=== PATIENT | female | born 1965 | race African-American/Black ===

== ENCOUNTER 2018-07-19 13:07 | Emergency (ER) | payer SELFPAY ==
[~2018-07-19] VITALS: Ht 167.6 cm; Wt 86.0 kg
[2018-07-19 15:30] VITALS: BP 164/72
[2018-07-19] MEDS ORDERED: KETOROLAC 60MG/2ML VIAL IM ONE (15:30)
== END 2018-07-19 17:19 | disposition left against medical advice (07) ==
LOC: ER 13:07
DX: M54.5 Low back pain (principal)
CPT/HCPCS: 96372; 99283; J1885